=== PATIENT | male | born 1960 | race Caucasian/White ===

== ENCOUNTER 2017-08-24 11:44 | Emergency (ER) | payer OTHER ==
[~2017-08-24] VITALS: Ht 165.1 cm; Wt 87.8 kg
[~2017-08-24 11:44] MED LIST: ASPI81TA82 PO; ATOR40TA PO; CARV6.252 PO; FURO20 PO; LEVO100T4 PO; NITR.4 SL; PLAV75TA PO; PROT40TA PO; XANA1TAB6 PO
[2017-08-24 11:48] VITALS: BP 145/87; PULSE 85; RESP 18; TEMP 98.1; O2SAT 97
--- NOTE | 2017-08-24 12:08 | PD ---
HPI Chief Complaint: Back/ Neck Pain or Injury Time Seen by Provider: 12:00 Travel History International Travel<30 days: No Contact w/Intl Traveler<30days: No Traveled to known affect area: No History of Present Illness HPI This is a 56-year-old male who presents for evaluation of lower back pain. He reports chronic lower back pain from a fall off of scaffolding in the . He reports that 2 weeks ago she slipped in the kitchen and fell, landing on his buttocks. Since then he has had worsening lower back pain. Pain is an aching pain is constant and worse with movement. He reports occasional tingling sensation down the right leg. He denies any incontinence of urine or stool, saddle anesthesia, abdominal pain, nausea or vomiting, focal weakness. He reports that he has only been taking aspirin for pain. He has no other complaints at this time. PFSH Past Medical History Heart Rhythm Problems: Yes (AFIB) Cardiac Catheterization: Yes Cardiovascular Problems: Yes (TRIPLE BYPASS CABGX 3) High Cholesterol: Yes Congestive Heart Failure: Yes COPD: Yes Cerebrovascular Accident: Yes Diabetes: No Diminished Hearing: No Herniated Disk: Yes Hypertension: Yes Musculoskeletal: Yes (OSTEOARTHRITIS, DEG DISC DIS) Myocardial Infarction: Yes Past Surgical History Cardiac Surgery: Yes (triple bypass 2010) Coronary Artery Bypass Graft: Yes (X3) Coronary Stent: Yes (1 stent Jun 12, 2016) Other Surgery: Yes (RT HAND) Social History Alcohol Use: Yes (socially) Tobacco Use: Yes (5 cigs daily) Substance Use: No Allergies-Medications (Allergen,Severity, Reaction): Coded Allergies: nalbuphine (Unverified Adverse Reaction, Mild, NAUSEATED, 06/06/17) Reported Meds & Prescriptions Reported Meds & Active Scripts Active Lidocaine Patch 12 HR (Lidocaine) 5 % Patch 1 Patch TOPICAL DAILY PRN Remove patch after 12 hours Tramadol (Tramadol HCl) 50 Mg Tab 50 Mg PO Q6H PRN Potassium Chloride ER (Potassium Chloride) 10 Meq Cap 10 Meq PO DAILY Protonix (Pantoprazole Sodium) 40 Mg Tab 40 Mg PO DAILY Nitroglycerin SL (Nitroglycerin) 0.4 Mg Subl 0.4 Mg SL DIRECTED PRN ONE TABLET UNDER THE TONGUE NEEDED FOR CHEST PAIN, MAY REPEAT EVERY FIVE MINUTES FOR A TOTAL OF 3 DOSES OR CALL 911 IF NO RELIEF Levothyroxine (Levothyroxine Sodium) 100 Mcg Tab 100 Mcg PO DAILY Carvedilol 3.125 Mg Tab 3.125 Mg PO BID Atorvastatin (Atorvastatin Calcium) 40 Mg Tab 40 Mg PO HS Aspirin 81 Mg Chew 81 Mg CHEW ONCE 30 Days Lasix (Furosemide) 40 Mg Tab 40 Mg PO DAILY Potassium Chloride ER (Potassium Chloride) 10 Meq Cap 10 Meq PO DAILY Pantoprazole (Pantoprazole Sodium) 40 Mg Tab 40 Mg PO DAILY Nitroglycerin SL (Nitroglycerin) 0.4 Mg Subl 0.4 Mg SL DIRECTED PRN ONE TABLET UNDER THE TONGUE NEEDED FOR CHEST PAIN, MAY REPEAT EVERY FIVE MINUTES FOR A TOTAL OF 3 DOSES OR CALL 911 IF NO RELIEF Levothyroxine (Levothyroxine Sodium) 100 Mcg Tab 100 Mcg PO DAILY Lasix (Furosemide) 40 Mg Tab 40 Mg PO DAILY Carvedilol 3.125 Mg Tab 3.125 Mg PO BID Atorvastatin (Atorvastatin Calcium) 40 Mg Tab 40 Mg PO HS Reported [pulmonary HTN med] Aspirin 81 Mg Chew 81 Mg CHEW DAILY Review of Systems Except as stated in HPI: all other systems reviewed are Neg Physical Exam Narrative GENERAL: Well-developed well-nourished male in no acute distress SKIN: Warm and dry. There is a small bruise to the right upper buttocks. HEAD: Atraumatic. Normocephalic. EYES: Pupils equal and round. No scleral icterus. No injection or drainage. ENT: No nasal bleeding or discharge. Mucous membranes pink and moist. NECK: Trachea midline. No JVD. CARDIOVASCULAR: Regular rate and rhythm. No murmur appreciated. RESPIRATORY: No accessory muscle use. Clear to auscultation. Breath sounds equal bilaterally. GASTROINTESTINAL: Abdomen soft, non-tender, nondistended. Hepatic and splenic margins not palpable. MUSCULOSKELETAL: There is mild tenderness to palpation along the lumbar midline spine. The patient is able to ambulate without apparent difficulty. He does have pain with range of motion activities of the lower extremities. NEUROLOGICAL: Awake and alert. No obvious cranial nerve deficits. Motor grossly within normal limits. Normal speech. Data Data Last Documented VS Vital Signs Date Time Temp Pulse Resp B/P (MAP) Pulse Ox O2 Delivery O2 Flow Rate FiO2 08/24/17 11:48 98.1 85 18 145/87 (106) 97 Room Air Orders Orders Spine, Lumbar - Ltd (Ap & Lat) (08/24/17 ) Ed Discharge Order (08/24/17 13:51) [facility] Medical Decision Making Medical Screen Exam Complete: Yes Emergency Medical Condition: Yes Medical Record Reviewed: Yes Interpretation(s) CONCLUSION: 1. Mild degenerative changes of the lumbar spine. 2. Grade 1 anterior spondylolisthesis of L5 over S1 with pars defects at L5. Differential Diagnosis Acute exacerbation chronic back pain, compression fracture, lumbar strain, spinal cord injury Narrative Course X-ray imaging of the lumbar spine will be obtained. X-ray imaging reveals chronic degenerative changes with no acute abnormalities. The patient is requesting a refill of all of his medications. He recently moved here from [place] and has not yet established care with a primary care locally. He'll be given a one-month supply of his medications. He will be given tramadol and Lidoderm patches for his back pain. Diagnosis Primary Impression: Lumbar strain Qualified Codes: S39.012A - Strain of muscle, fascia and tendon of lower back , initial encounter Additional Impression: Medication refill Additional Instructions: Establish care with a primary care physician locally for further management of chronic medical conditions. Medication as needed for pain. Avoid strenuous activity. Return for any emergent medical conditions. Med/Other Pt SpecificInfo: Prescription(s) given Scripts Lidocaine Patch 12 HR (Lidocaine Patch 12 HR) 5 % Patch 1 PATCH TOPICAL DAILY Y for PAIN, #1 BOX 0 Refills Remove patch after 12 hours Prov: Arminda Payne MD 08/24/17 Tramadol (Tramadol) 50 Mg Tab 50 MG PO Q6H Y for PAIN, #20 TAB 0 Refills Prov: Arminda Payne MD 08/24/17 Potassium Chloride ER (Potassium Chloride ER) 10 Meq Cap 10 MEQ PO DAILY for Electrolyte Replacement, #30 CAP 0 Refills Prov: Arminda Payne MD 08/24/17 Pantoprazole (Protonix) 40 Mg Tab 40 MG PO DAILY for Reflux, #30 TAB 0 Refills Prov: Arminda Payne MD 08/24/17 Nitroglycerin SL (Nitroglycerin SL) 0.4 Mg Subl 0.4 MG SL DIRECTED Y for CHEST PAIN, #100 TAB.SL 0 Refills ONE TABLET UNDER THE TONGUE NEEDED FOR CHEST PAIN, MAY REPEAT EVERY FIVE MINUTES FOR A TOTAL OF 3 DOSES OR CALL 911 IF NO RELIEF Prov: Arminda Payne MD 08/24/17 Levothyroxine (Levothyroxine) 100 Mcg Tab 100 MCG PO DAILY for Thyroid, #30 TAB 0 Refills Prov: Arminda Payne MD 08/24/17 Carvedilol (Carvedilol) 3.125 Mg Tab 3.125 MG PO BID, #60 TAB 0 Refills Prov: Arminda Payne MD 08/24/17 Atorvastatin (Atorvastatin) 40 Mg Tab 40 MG PO HS for Cholesterol Management, #30 TAB 0 Refills Prov: Arminda Payne MD 08/24/17 Aspirin (Aspirin) 81 Mg Chew 81 MG CHEW ONCE for 30 Days, TAB 0 Refills Prov: Arminda Payne MD 08/24/17 Furosemide (Lasix) 40 Mg Tab 40 MG PO DAILY, #30 TAB 0 Refills Prov: Arminda Payne MD 08/24/17 Potassium Chloride ER (Potassium Chloride ER) 10 Meq Cap 10 MEQ PO DAILY for Electrolyte Replacement, #30 CAP 0 Refills Prov: Arminad Payne MD 08/24/17 Pantoprazole (Pantoprazole) 40 Mg Tab 40 MG PO DAILY for Reflux, #30 TAB 0 Refills Prov: Arminda Payne MD 08/24/17 Nitroglycerin SL (Nitroglycerin SL) 0.4 Mg Subl 0.4 MG SL DIRECTED Y for CHEST PAIN, #100 TAB.SL 0 Refills ONE TABLET UNDER THE TONGUE NEEDED FOR CHEST PAIN, MAY REPEAT EVERY FIVE MINUTES FOR A TOTAL OF 3 DOSES OR CALL 911 IF NO RELIEF Prov: Arminda Payne MD 08/24/17 Levothyroxine (Levothyroxine) 100 Mcg Tab 100 MCG PO DAILY for Thyroid, #30 TAB 0 Refills Prov: Arminda Payne MD 08/24/17 Furosemide (Lasix) 40 Mg Tab 40 MG PO DAILY, #30 TAB 0 Refills Prov: Arminda Payne MD 08/24/17 Carvedilol (Carvedilol) 3.125 Mg Tab 3.125 MG PO BID, #60 TAB 0 Refills Prov: Arminda Payne MD 08/24/17 Atorvastatin (Atorvastatin) 40 Mg Tab 40 MG PO HS for Cholesterol Management, #30 TAB 0 Refills Prov: Arminda Payne MD 08/24/17 Disposition: 01 DISCHARGE HOME Condition: Stable Lino Patrick Aug 24, 2017 12:08
[2017-08-24] MEDS ORDERED: POTA10CA PO ×2 (12:49→13:41)
[2017-08-24] MEDS ORDERED: NITR1SUB3 SL ×2 (12:49→13:41)
[2017-08-24] MEDS ORDERED: PANT40TA3 PO ×2 (12:49→13:41)
[2017-08-24] MEDS ORDERED: FURO1TAB60 PO ×2 (12:49→13:41)
[2017-08-24] MEDS ORDERED: [UNRECOGNIZED DRUG - REMARK] (12:49)
[2017-08-24] MEDS ORDERED: ATOR40TA16 PO ×2 (12:49→13:41)
[2017-08-24] MEDS ORDERED: LEVO100T5 PO ×2 (12:49→13:41)
[2017-08-24] MEDS ORDERED: CARV3.12 PO ×2 (12:49→13:41)
[2017-08-24] MEDS ORDERED: ASPI-516 CHEW ×2 (12:49→13:41)
--- NOTE | 2017-08-24 13:32 | RADRPT ---
EXAM DATE/TIME: 08/24/2017 12:30 [facility] COMPARISON: No previous studies available for comparison. INDICATIONS : Fall 2 weeks ago, low back pain. MEDICAL HISTORY : Hypertension. Chronic obstructive pulmonary disease. hx. low back injury SURGICAL HISTORY : CABG. ENCOUNTER: Initial ACUITY: 2 weeks PAIN SCORE: 10/10 LOCATION: Right lower back FINDINGS: Two view examination was performed. There are five non-rib bearing vertebral bodies. Mild grade 1 an terior spondylolisthesis of L5 over S1. There is disc space narrowing at L4-5 and L5-S1. There are pa rs defects at L5. There are mild degenerative changes of the lumbar spine. There is good alignment of the SI joints. CONCLUSION: 1. Mild degenerative changes of the lumbar spine. 2. Grade 1 anterior spondylolisthesis of L5 over S1 with pars defects at L5. Prakash Albright MD on August 24, 2017 at 13:29 Board Certified Radiologist. This report was verified electronically.
[2017-08-24] MEDS ORDERED: TRAM50TA PO (13:41)
[2017-08-24] MEDS ORDERED: LIDO1PAD52 TOPICAL (13:41)
[2017-08-24] MEDS ORDERED: PROT40TA PO (13:41)
== END 2017-08-24 14:02 | disposition home or self-care (01) ==
LOC: PHEFT 11:44
DX: S39.012A Strain of muscle, fascia and tendon of lower back, initial encounter (principal); I48.91 Unspecified atrial fibrillation; I11.0 Hypertensive heart disease with heart failure; I50.9 Heart failure, unspecified; I25.2 Old myocardial infarction; F17.210 Nicotine dependence, cigarettes, uncomplicated; W01.0XXA Fall on same level from slipping, tripping and stumbling without subsequent striking against object, initial encounter; Y92.000 Kitchen of unspecified non-institutional (private) residence as the place of occurrence of the external cause
CPT/HCPCS: 72100; 99284

== ENCOUNTER 2017-09-06 13:14 | Emergency (ER) | payer OTHER ==
[~2017-09-06 13:14] MED LIST changes: +ASPI-516 CHEW; -ASPI81TA82 PO; -ATOR40TA PO; +ATOR40TA16 PO; +CARV3.12 PO; -CARV6.252 PO; +FURO1TAB60 PO; -FURO20 PO; -LEVO100T4 PO; +LEVO100T5 PO; +LIDO1PAD52 TOPICAL; -NITR.4 SL; +NITR1SUB3 SL; +PANT40TA3 PO; -PLAV75TA PO; +POTA10CA PO; +TRAM50TA PO; -XANA1TAB6 PO; +[UNRECOGNIZED DRUG - REMARK]
[2017-09-06 13:30] VITALS: BP 161/74; PULSE 84; RESP 16; TEMP 98.3; O2SAT 97
--- NOTE | 2017-09-06 14:41 | RADRPT ---
EXAM DATE/TIME: 09/06/2017 14:31 [facility] COMPARISON: CHEST SINGLE AP, July 06, 2016, 10:28. INDICATIONS : Cough, congestion, chest pain. MEDICAL HISTORY : Chronic obstructive pulmonary disease. Hypertension Cardiovascular disease. SURGICAL HISTORY : CABG. ENCOUNTER: Initial ACUITY: 2 days PAIN SCORE: 7/10 LOCATION: Bilateral chest FINDINGS: Sternal wire from previous bypass is noted. The heart and pulmonary vascularity are normal. The porti on of the bony skeleton visualized is unremarkable. Lungs are clear. CONCLUSION: Bypass otherwise negative. Melecio Castaneda MD FACR on September 06, 2017 at 14:39 Board Certified Radiologist. This report was verified electronically.
[2017-09-06] MEDS ORDERED: FLUT1SPR5 EACH NARE (14:52)
[2017-09-06] MEDS ORDERED: AZIT250T3 PO (14:52)
--- NOTE | 2017-09-06 14:53 | PD ---
HPI . Upper respiratory symptoms Chief Complaint: Cold / Flu Symptoms Time Seen by Provider: 13:58 Travel History International Travel<30 days: No Contact w/Intl Traveler<30days: No Traveled to known affect area: No History of Present Illness HPI 56-year-old male patient presents emergency department for evaluation of sore throat, cough and nasal congestion that started yesterday. Patient presents with his and 3 kids. His and young son are getting evaluated for the same complaint. Patient is a pack-a-day smoker. Patient has medical history of open-heart surgery, CVA and pulmonary hypertension. Patient states the symptoms just started but he wants to get control of them before they get worse due to his medical history. Patient denies any fever or chills. Patient denies any abdominal pain, nausea, vomiting, diarrhea. Patient denies any chest pain or shortness of breath. Patient denies any ear pain. PFSH Past Medical History Heart Rhythm Problems: Yes (AFIB) Cardiac Catheterization: Yes Cardiovascular Problems: Yes (TRIPLE BYPASS CABGX 3, pulmonary htn) High Cholesterol: Yes Chest Pain: Yes Congestive Heart Failure: Yes COPD: Yes Cerebrovascular Accident: Yes Coronary Artery Disease: Yes Diabetes: No Diminished Hearing: No Herniated Disk: Yes Hypertension: Yes Medical other: Yes (hx dvt) Musculoskeletal: Yes (OSTEOARTHRITIS, DEG DISC DIS) Immunizations Current: Yes Myocardial Infarction: Yes Tetanus Vaccination: > 5 Years Influenza Vaccination: No Past Surgical History Cardiac Surgery: Yes (triple bypass 2010) Coronary Artery Bypass Graft: Yes (X3) Coronary Stent: Yes (1 stent Jun 12, 2016) Tonsillectomy: Yes Other Surgery: Yes (RT HAND) Social History Alcohol Use: Yes (socially) Tobacco Use: Yes (1 pk plus) Substance Use: No Allergies-Medications (Allergen,Severity, Reaction): Coded Allergies: nalbuphine (Unverified Adverse Reaction, Mild, NAUSEATED, 09/06/17) Reported Meds & Prescriptions Reported Meds & Active Scripts Active Flonase Nasal [place] (Fluticasone Nasal [place]) 50 Mcg/Act [place] 50 Mcg EACH NARE BID Azithromycin 250 Mg Tab 250 Mg PO DIRECTED Take 2 tabs (500 mg) on day 1 then 1 tab daily x 4 days. Potassium Chloride ER (Potassium Chloride) 10 Meq Cap 10 Meq PO DAILY Pantoprazole (Pantoprazole Sodium) 40 Mg Tab 40 Mg PO DAILY Nitroglycerin SL (Nitroglycerin) 0.4 Mg Subl 0.4 Mg SL DIRECTED PRN ONE TABLET UNDER THE TONGUE NEEDED FOR CHEST PAIN, MAY REPEAT EVERY FIVE MINUTES FOR A TOTAL OF 3 DOSES OR CALL 911 IF NO RELIEF Levothyroxine (Levothyroxine Sodium) 100 Mcg Tab 100 Mcg PO DAILY Lasix (Furosemide) 40 Mg Tab 40 Mg PO DAILY Carvedilol 3.125 Mg Tab 3.125 Mg PO BID Atorvastatin (Atorvastatin Calcium) 40 Mg Tab 40 Mg PO HS Reported [pulmonary HTN med] Aspirin 81 Mg Chew 81 Mg CHEW DAILY Review of Systems Except as stated in HPI: all other systems reviewed are Neg HENT: Positive: Sore Throat, Congestion Physical Exam Narrative GENERAL: Well-nourished, well-developed 56-year-old male patient in no acute distress. Nontoxic appearing. SKIN: Focused skin assessment warm/dry. HEAD: Normocephalic. Atraumatic. EYES: No scleral icterus. No injection or drainage. ENT: Mucosa pink and moist. No erythema or exudates. No uvular edema. No uvular , palatal, or tonsillar deviation. Airway patent. Nasal turbinates appear hypertrophic without nasal blood, purulent drainage or septal hematoma. THROAT: Mild pharyngeal injection, No exudates, or tonsillar hypertrophy. Airway is patent. NECK: Supple, trachea midline. No JVD or lymphadenopathy. CARDIOVASCULAR: Regular rate and rhythm without murmurs, gallops, or rubs. RESPIRATORY: Breath sounds equal bilaterally, coarse at bilateral bases. No rhonchi noted. No accessory muscle use. GASTROINTESTINAL: Abdomen soft, non-tender, nondistended. MUSCULOSKELETAL: No cyanosis, or edema. BACK: Nontender without obvious deformity. No CVA tenderness. Data Data Last Documented VS Vital Signs Date Time Temp Pulse Resp B/P (MAP) Pulse Ox O2 Delivery O2 Flow Rate FiO2 09/06/17 13:51 97 Room Air 09/06/17 13:30 98.3 84 16 161/74 (103) Orders Orders Chest, Single Ap (09/06/17 14:21) Ed Discharge Order (09/06/17 14:53) MDM Medical Decision Making Medical Screen Exam Complete: Yes Emergency Medical Condition: Yes Differential Diagnosis Differential diagnoses include but not limited to pharyngitis, URI, sinusitis, bronchitis Narrative Course 56-year-old male patient presents emergency department for evaluation of upper respiratory symptoms. Patient denies any fever or chills. Patient is experiencing a productive cough with thick green phlegm. Patient is pack a day smoker with an extensive medical history. Patient's lung sounds were coarse and the base of his lungs. Chest x-ray ordered and shows no acute abnormality. Patient was treated with a Z-Bo for bronchitis and Flonase for nasal congestion. Patient discharged home with instructions to follow-up with his primary care return to the emergency Department with any worsening condition. Diagnosis Primary Impression: Bronchitis Referrals: Primary Care Physician Patient Instructions: Acute Bronchitis (ED), General Instructions Additional Instructions: Please return to emergency department if your symptoms return or worsen. Follow up with your primary care provider. Take medications as prescribed. Med/Other Pt SpecificInfo: Prescription(s) given Scripts Fluticasone Nasal [place] (Flonase Nasal [place]) 50 Mcg/Act [place] 50 MCG EACH NARE BID for Allergies, #1 BOTTLE 0 Refills Prov: Sindy Montanez 09/06/17 Azithromycin (Azithromycin) 250 Mg Tab 250 MG PO DIRECTED for Infection, #6 TAB 0 Refills Take 2 tabs (500 mg) on day 1 then 1 tab daily x 4 days. Prov: Sindy Montanez 09/06/17 Disposition: 01 DISCHARGE HOME Condition: Stable Sindy Montanez Sep 06, 2017 14:53
== END 2017-09-06 15:24 | disposition home or self-care (01) ==
LOC: PHEFT 13:14
DX: J40 Bronchitis, not specified as acute or chronic (principal); F17.210 Nicotine dependence, cigarettes, uncomplicated
CPT/HCPCS: 71010; 99283